=== PATIENT | female | born 1980 | race Two or more races ===

== ENCOUNTER 2021-08-04 11:56 | Outpatient (CLI) | payer OTHER | END 2021-08-04 12:05 | disposition home or self-care (01) | LOC: MAMO-SONO 11:56 | PROVIDERS: ATTEND Internal Medicine Gastroenterology | DX: R10.84 Generalized abdominal pain (principal); K82.4 Cholesterolosis of gallbladder; Z12.31 Encounter for screening mammogram for malignant neoplasm of breast; N64.89 Other specified disorders of breast ==

== ENCOUNTER 2024-08-01 07:24 | Outpatient (CLI) | payer OTHER | END 2024-08-01 07:31 | disposition home or self-care (01) | LOC: MAMO-SONO 07:24 | DX: N64.59 Other signs and symptoms in breast (principal); D25.9 Leiomyoma of uterus, unspecified; N84.0 Polyp of corpus uteri ==